=== PATIENT | female | born 1940 | race Hispanic/Latino ===

== ENCOUNTER → 2023-11-20 | Outpatient (CLI) | payer MEDICARE | END | disposition home or self-care (01) | LOC: RAH 14:51 | PROVIDERS: ATTEND Internal Medicine Gastroenterology | DX: K59.00 Constipation, unspecified (principal); R93.3 Abnormal findings on diagnostic imaging of other parts of digestive tract; D50.0 Iron deficiency anemia secondary to blood loss (chronic) | CPT/HCPCS: 74021 ==